=== PATIENT | male | born 1955 | race Hispanic/Latino ===

== ENCOUNTER 2017-08-29 22:04 | Inpatient (IN) | payer BC ==
[~2017-08-29] VITALS: Ht 175.3 cm; Wt 95.7 kg
[~2017-08-29 22:04] MED LIST: BIAXIN500 MG PO; CLONIDINE HCL0.1 MG PO; HYDRALAZINE HCL25 MG PO; LASIX40 MG PO; LEVAQUIN250 MG PO; METOLAZONE5 MG PO; NIFEDIPINE ER30 M1 PO; PROCARDIA XL30 MG PO; TOPROL XL50 MG PO; TOUJEO SOLOSTAR SQ
--- OUTSIDE RECORDS SUMMARY | 2017-08-29 22:06 | XMS REPORT | Clinical Summary ---
Author Author [facility] Address Unknown Phone Unavailable Care Team Providers Care Escalation Engineer Name Role Phone Devan Beal MD PCP Allergies Not on File Current Medications Not on file Active Problems Not on file Encounters Date Type Specialty Care Team Description 07/20/2017 Hospital Procedural Cardiology Deborah Rodrigez MD Thrombosis of both upper Encounter extremities; ESRD (end stage renal disease) on dialysis 07/11/2017 Orders Only General Surgery Deborah Rodrigez MD Thrombosis of both upper extremities (Primary Dx); ESRD (end stage renal disease) on dialysis after 08/28/2016 Social History Tobacco Use Types Packs/Day Years Used Date Never Assessed Sex Assigned at Date Recorded Not on file Last Filed Vital Signs Not on file Plan of Treatment Health Maintenance Due Date Last Done Comments COLONOSCOPY 11/13/2007 INFLUENZA VACCINE 01/09/2017 Results * Us vein mapping upper extremity (07/20/2017 12:05 PM) Specimen Performing Laboratory [facility] [address] [place] [address] Narrative Vascular Ultrasound Laboratory Upper Extremity Vein Mapping Report [id number]Name:Safia NUÑEZ.ID:[id number] .Date: 07/20/2017Refer.MD:DEBORAH RODRIGEZ MD Exam Time: 11:02:00 AM Study Type:UE Vein Mapping DOBAge:1955,61YSex: MALE Sonogrphr: Juan Jose Rodgers RN, RVTPat. Stat.:Outpatient TapeVol: DP, CPT - 4: G0365, 83149 Echo Event ID:[id number] Order ID:[id number] Reason for Study:ESRD.Pre op vein mapping for AVF. Race: SUMMARY: DUPLEX SCAN OBSERVATIONS Right Left IJNormal Normal SubclavianTDC Normal AxillaryNormal Normal BrachialNormal Normal BasilicNormal Not Visualized CephalicNot Visualized Not Visualized RIGHT:There is normal compressibility and no evidence of echogenic material noted within the lumen of the visualized veins. Colorflow and Doppler signals are normal. LEFT: There is normal compressibility and no evidence of echogenic material noted within the lumen of the visualized veins. Colorflow and Doppler signals are normal. PRELIMINARY FINDINGS PHYSICIAN INTERPRETATION Venous examination of the both upper extremities and neck demonstrated no evidence of venous thrombosis. Dimensions provided. MEASUREMENTS: UEVEINS Right Basilic Upper Arm Prox Basilic Upper A0.58 cm Basilic Upper A0.83 cm Right Basilic Upper Arm Mid Basilic Upper A0.58 cm Basilic Upper A0.99 cm Right Basilic Upper Arm Dist Basilic Upper A0.43 cm Basilic Upper A0.57 cm Right Basilic Forearm Prox Basilic Forearm0.38 cm Basilic Forearm0.45 cm Right Brachial Vein Antecube Brachial Vein A0.33 cm Brachial Vein A1.32 cm Left Brachial Vein Antecube Brachial Vein A0.45 cm Brachial Vein A1.63 cm Right Brachial Artery Brachial Artery0.53 cm Brachial Artery1.47 cm Left Brachial Artery Brachial Artery0.53 cm Brachial Artery 1 cm Right Radial Artery Radial Artery A0.35 cm Radial Artery D0.35 cm Left Radial Artery Radial Artery A0.29 cm Radial Artery D0.34 cm Right Ulnar Artery Ulnar Artery AP 0.2 cm Ulnar Artery De0.52 cm Left Ulnar Artery Ulnar Artery AP0.21 cm Signed 07/20/2017 01:08 PM Alvaro Daniel MD, RPVI Procedure Note Interface, Radiology Results In - 07/20/2017 1:09 PM [facility] Vascular Ultrasound Laboratory Upper Extremity Vein Mapping Report [address] [address], [place] [address] Pat.Name: BERTRAM NUÑEZ Pat.ID: [id number] .Date: 07/20/2017 Refer.MD: DEBORAH RODRIGEZ MD Exam Time: 11:02:00 AM Study Type:UE Vein Mapping Age: 8 1955,61Y Sex: MALE Sonogrphr: Juan Jose Rodgers RN, RVT Pat. Stat.:Outpatient Tape Vol: DP, CPT - 4: G0365, 72970 Echo Event ID:[id number] Order ID: [id number] Reason for Study:ESRD. Pre op vein mapping for AVF. Race: SUMMARY: DUPLEX SCAN OBSERVATIONS Right Left IJ Normal Normal Subclavian TDC Normal Axillary Normal Normal Brachial Normal Normal Basilic Normal Not Visualized Cephalic Not Visualized Not Visualized RIGHT: There is normal compressibility and no evidence of echogenic material noted within the lumen of the visualized veins. Colorflow and Doppler signals are normal. LEFT: There is normal compressibility and no evidence of echogenic material noted within the lumen of the visualized veins. Colorflow and Doppler signals are normal. PRELIMINARY FINDINGS PHYSICIAN INTERPRETATION Venous examination of the both upper extremities and neck demonstrated no evidence of venous thrombosis. Dimensions provided. MEASUREMENTS: UEVEINS Right Basilic Upper Arm Prox Basilic Upper A 0.58 cm Basilic Upper A 0.83 cm Right Basilic Upper Arm Mid Basilic Upper A 0.58 cm Basilic Upper A 0.99 cm Right Basilic Upper Arm Dist Basilic Upper A 0.43 cm Basilic Upper A 0.57 cm Right Basilic Forearm Prox Basilic Forearm 0.38 cm Basilic Forearm 0.45 cm Right Brachial Vein Antecube Brachial Vein A 0.33 cm Brachial Vein A 1.32 cm Left Brachial Vein Antecube Brachial Vein A 0.45 cm Brachial Vein A 1.63 cm Right Brachial Artery Brachial Artery 0.53 cm Brachial Artery 1.47 cm Left Brachial Artery Brachial Artery 0.53 cm Brachial Artery 1 cm Right Radial Artery Radial Artery A 0.35 cm Radial Artery D 0.35 cm Left Radial Artery Radial Artery A 0.29 cm Radial Artery D 0.34 cm Right Ulnar Artery Ulnar Artery AP 0.2 cm Ulnar Artery De 0.52 cm Left Ulnar Artery Ulnar Artery AP 0.21 cm Signed 07/20/2017 01:08 PM Alvaro Daniel MD, RPVI after 08/28/2016 Insurance Payer Benefit Subscriber ID Type Phone Address Plan / Group BCBS BCBS xxxxxxxxxxxx PPO CHOICE PPO/[place] [address]
--- OUTSIDE RECORDS SUMMARY | 2017-08-29 22:06 | XMS REPORT ---
Author Author [facility] Address Unknown Phone Unavailable Care Team Providers Care Latin Teacher Name Role Phone Unavailable Unavailable Problems This patient has no known problems. Allergies, Adverse Reactions, Alerts This patient has no known allergies or adverse reactions. Medications This patient has no known medications. Encounters Start Date/Time End Date/Time Encounter Type Admission Type Attending [facility] Care Facility Care Department Encounter ID 2017-01-29 08:57:02 2017-01-29 08:57:02 Emergency [facility] [id number] 2017-01-29 07:34:28 2017-01-29 07:34:28 Emergency [facility] [id number] 2017-01-29 07:34:04 2017-01-29 07:34:04 Emergency [facility] [id number] 2017-01-29 06:33:31 2017-01-29 06:33:31 Emergency [facility] [id number]
[2017-08-29] MEDS ORDERED: CLONIDINE HCL 0.1 MG TAB PO ONE (22:45)
[2017-08-29 22:58] LABS: BASOPHILS # (AUTO) 0.1 (0.0-0.1); BASOPHILS % 0.7 % (0.0-1.0); EOSINOPHILS # (AUTO) 0.3 (0.0-0.4); EOSINOPHILS % 3.2 % (0.0-6.0); HEMATOCRIT 34.8 % (38.2-49.6); HEMOGLOBIN 11.9 g/dL (14.0-18.0); LYMPHOCYTES # (AUTO) 1.9 (1.0-3.2); LYMPHOCYTES % 22.7 % (18.0-39.1); MEAN CORPUSCULAR HGB CONC 34.2 g/dL (31-35); MEAN CORPUSCULAR VOLUME 84.7 fL (81-99); MONOCYTES # (AUTO) 0.6 (0.2-0.8); MONOCYTES % 7.4 % (4.4-11.3); NEUTROPHILS # (AUTO) 5.6 (2.1-6.9); NEUTROPHILS % 65.8 % (38.7-80.0); PLATELET COUNT 228 x10e3/uL (140-360); RED BLOOD COUNT 4.11 x10e6/uL (4.3-5.7); RED CELL DISTRIBUTION WIDTH 13.8 % (11.7-14.4)
[2017-08-29 23:11] LABS: INR 1.1; PROTHROMBIN TIME 13.4 seconds (11.9-14.5)
[2017-08-29 23:12] LABS: PARTIAL THROMBOPLASTIN TIME 33.7 seconds (23.8-35.5)
[2017-08-29 23:19] LABS: ALBUMIN/GLOBULIN RATIO 1.1 (0.8-2.0); ANION GAP 19.3 mmol/L (8-16); CALCIUM 8.2 mg/dL (8.4-10.2); CREATININE, SERUM 6.69 mg/dL (0.72-1.25); POTASSIUM 5.3 mmol/L (3.5-5.1)
[2017-08-29 23:25] LABS: CREATINE KINASE MB 23.5 ng/mL (0-5.0)
--- NOTE | 2017-08-29 23:39 | Diagnostic Imaging Report ---
EXAMINATION: Head CT without contrast. HISTORY:Syncope and dizziness. COMPARISON:CT brain from 08/11/2016. TECHNIQUE: Multidetector axial images were obtained from the foramen magnum to the vertex without contrast. The images were reconstructed using brain and bone algorithms. Thin section brain images were reformatted into coronal and sagittal planes. Intravenous contrast: None IMAGE QUALITY: Acceptable. FINDINGS: Skull/scalp: No lytic or blastic. lesions. No surgical changes. Parenchyma: No abnormal density. No acute hemorrhage, mass or acute major vascular territorial infarct. Arteries: Atherosclerotic calcification in bilateral carotid siphon. Dural sinuses: No abnormal density suggestive of thrombosis. Ventricles: No hydrocephalus or displacement. Extra-axial spaces: Unchanged 3 mm dural based dystrophic calcification in the posterior aspect of left temporal region without surrounding edema or mass effect may represent a small calcified meningioma. Brain volume: Mild generalized cerebral volume loss. Craniocervical junction: No mass, Chiari malformation, or basilar invagination. Sella: No mass. Paranasal/mastoid sinuses: Imaged portions unremarkable. IMPRESSION: No acute intracranial abnormality. Mild generalized cerebral volume loss. Signed by: Dr. Keesha Lane M.D. on 08/29/2017 11:35 PM
--- NOTE | 2017-08-29 23:45 | Diagnostic Imaging Report ---
EXAM: CHEST 2 VIEWS, PA and lateral INDICATION: Syncope, dizziness COMPARISON: PA and lateral view of the chest August 14, 2016 FINDINGS: LINES/TUBES: Interval placement of right internal jugular vein tunnel hemodialysis catheter with tip at the expected location of the atriocaval junction. LUNGS: No consolidations or edema. PLEURA: No effusions or pneumothorax. HEART AND MEDIASTINUM: Normal size and contour. BONES AND SOFT TISSUES: No acute findings. IMPRESSION: No acute thoracic abnormality. Signed by: Dr. Alayna Saucedo M.D. on 08/29/2017 11:41 PM
[2017-08-30] VITALS (9 sets, daily range): BP systolic 130–198; BP diastolic 65–97
[2017-08-30 00:17] LABS: BILIRUBIN,URINE NEGATIVE (NEGATIVE); CLARITY,URINE CLEAR (CLEAR); COLOR,URINE YELLOW (YELLOW); KETONES,URINE NEGATIVE (NEGATIVE); LEUKOCYTE ESTERASE ,URINE NEGATIVE (NEGATIVE); NITRITE,URINE NEGATIVE (NEGATIVE); PROTEIN,URINE DIPSTICK 3+ (NEGATIVE); URINE UROBILINOGEN 0.2 mg/dL (0.2 - 1)
[2017-08-30 00:34] LABS: EPITHELIAL CELLS,URINE RARE /LPF; WBC,URINE (MAN) 0-5 /HPF (0-5)
[2017-08-30 00:35] LABS: BACTERIA,URINE FEW /HPF
[2017-08-30] MEDS ORDERED: NITROGLYCERIN 2% OINT 1 GM PKT TOP ONE ×2 (01:00→02:00)
[2017-08-30] MEDS ORDERED: FUROSEMIDE INJ 10 MG/ML 4 ML VIAL IV ONE (01:00)
[2017-08-30] MEDS ORDERED: ASPIRIN 325 MG TAB EC PO STA (02:03)
[2017-08-30] MEDS: FAMOTIDINE 20 MG/2 ML VIAL IV SCH ×2 (02:15→10:09)
[2017-08-30] MEDS ORDERED: HYDRALAZINE HCL 20 MG/ML VIAL IV PRN (02:15)
[2017-08-30] MEDS ORDERED: ONDANSETRON HCL INJ 2 MG/ML VIAL IV PRN (02:15)
[2017-08-30] MEDS ORDERED: MORPHINE SULFATE 2 MG/ML SYR IV PRN (02:15)
--- OUTSIDE RECORDS SUMMARY | 2017-08-30 02:16 | XMS REPORT | Clinical Summary ---
Author Author [facility] Address Unknown Phone Unavailable Care Team Providers Care Public Service Administrator Name Role Phone Devan Beal MD PCP [...] (end stage renal disease) on dialysis after 08/29/2016 Social History Tobacco Use Types Packs/Day Years Used Date Never Assessed Sex Assigned at Date Recorded Not on file Last Filed Vital Signs Not on file Plan of Treatment Health Maintenance Due Date Last Done Comments COLONOSCOPY 11/13/2007 INFLUENZA VACCINE 01/09/2017 Results * Us vein mapping upper extremity (07/20/2017 12:05 PM) Specimen Performing Laboratory [facility] [address] [place] [address] Narrative Vascular Ultrasound Laboratory Upper Extremity Vein Mapping Report [address]Name:Safia NUÑEZ.ID:[id number] .Date: 07/20/2017Refer.MD:DEBORAH RODRIGEZ MD Exam Time: 11:02:00 AM Study Type:UE Vein Mapping DOBAge:1955,61YSex: MALE Sonogrphr: Juan Jose Rodgers RN, RVTPat. Stat.:Outpatient TapeVol: DP, CPT - 4: G0365, 04682 Echo Event ID:[id number] Order ID:[id number] Reason for Study:ESRD.Pre op vein mapping for [...] Radiology Results In - 07/20/2017 1:09 PM [facility] Vascular Ultrasound Laboratory Upper Extremity Vein Mapping Report [address] [address], [place] [address] Pat.Name: BERTRAM NUÑEZ Pat.ID: [id number] .Date: 07/20/2017 Refer.MD: DEBORAH RODRIGEZ MD Exam Time: 11:02:00 AM Study Type:UE Vein Mapping Age: 8 1955,61Y Sex: MALE Sonogrphr: Juan Jose Rodgers RN, RVT Pat. Stat.:Outpatient Tape Vol: DP, CPT - 4: G0365, 14801 Echo Event ID:[id number] Order ID: [id number] Reason for Study:ESRD. Pre op vein mapping [...] 01:08 PM Alvaro Daniel MD, RPVI after 08/29/2016 Insurance Payer Benefit Subscriber ID Type Phone Address Plan / Group BCBS BCBS xxxxxxxxxxxx PPO CHOICE PPO/[place] [address]
[2017-08-30 04:41] LABS: CREATINE KINASE MB 16.6 ng/mL (0-5.0)
[2017-08-30] MEDS: INSULIN REGULAR, HUMAN 100 UNIT/1 ML 3ML VIAL SQ SCH ×4 (07:30→21:40)
[2017-08-30] MEDS: HYDRALAZINE HCL 100 MG TABLET PO SCH ×4 (09:00→21:54)
[2017-08-30] MEDS ORDERED: HYDRALAZINE HCL 25 MG TAB PO SCH (09:00)
[2017-08-30] MEDS: METOPROLOL SUCCINATE 50 MG TAB XL PO SCH ×3 (09:00→16:52)
[2017-08-30] MEDS: FUROSEMIDE 40 MG TAB PO SCH ×2 (10:09→16:51)
[2017-08-30] MEDS: ASPIRIN 81 MG ENTERIC COATED PO SCH (10:09)
[2017-08-30] MEDS: NIFEDIPINE CR 30 MG TAB PO SCH (10:09)
[2017-08-30] MEDS: METOLAZONE 5 MG TAB PO SCH (10:10)
--- NOTE | 2017-08-30 11:19 | History and Physical ---
A 61-year-old gentleman comes in with syncopal episode. HISTORY OF PRESENT ILLNESS: This is Mr. Bertram Nuñez who is a patient with end-stage renal disease, who was in his usual state of health until a day prior to admission. The patient was sitting down, and as he woke up the patient bent over forward, and his head hit the floor. Momentary lapse of consciousness. The patient's brought him to the emergency room. Preceding the symptoms, the patient had a lot of lightheadedness associated with dialysis. This last episode fell and collapsed. Possible loss of consciousness. No seizure activity. No incontinence. No breathing cessation noted. The patient has been recently seen by the renal clinic for dialysis. The last dialysis was 2 days ago. PAST MEDICAL HISTORY: History of hypertension, history of diabetes mellitus, history of end-stage renal disease, history of heart disease. The patient recently had a stress test with Dr. Espinosa, and was supposed to have a cath done in the near future. The patient's stress test did show something positive according to the patient. MEDICATIONS 1. Clonidine 0.1 mg. 2. Furosemide 40 mg. 3. Hydralazine 25 mg. 4. Metolazone 5 mg. 5. Metoprolol 50 mg. 6. Nifedipine 30 mg. 7. Toujeo 10 units at nighttime. ALLERGIES: SEE NURSE'S NOTES. HOWEVER, THE PATIENT HAS NO ALLERGIES NOTED. REVIEW OF SYSTEMS: Negative for chest pain. No shortness of breath. No nausea, vomiting or diarrhea. No constipation or rectal bleeding. No hematochezia. No hematemesis. No diplopia. No blurry vision. Positive for syncopal episode and positive for lightheadedness as noted above. FAMILY HISTORY: Hypertension, coronary artery disease and diabetes in family. PHYSICAL EXAMINATION GENERAL: The patient is alert and oriented times 3. Comfortable lying in bed. VITAL SIGNS: Pulse is 70, blood pressure 175/98, pulse oximetry is 100% on room air. HEENT: Normocephalic and atraumatic. Pupils reactive to light and accommodation. Poor dental hygiene. CV: S1 and S2 normal. RESPIRATIONS: Clear to auscultation bilaterally. ABDOMEN: Nontender and nondistended. EXTREMITIES: No clubbing. No cyanosis. No edema. NEUROLOGICAL: Alert and oriented times 3. Speech is normal. Cranial nerves are normal. No motor or sensory deficits noted either. Reflexes are normal. LABORATORY VALUES: Initial sodium was 136, potassium 5.3, BUN 81, creatinine 6.69, glucose 148, calcium 8.2. CK and CK-MB trended high of 595 and 2 and 3.5. Troponins were negative at 0.116. Chest x-ray showed no acute thoracic abnormalities. CT of the brain was appropriate for age. ASSESSMENT 1. Syncopal episode. 2. End-stage renal deficiency, on dialysis. 3. Uncontrolled hypertension with hypertensive crisis. PLAN: Continue his home medications. The patient will have an MRI and MRA of the brain. Cardiology consult has been done. Orthostatic blood pressures have been ordered. The patient already had a stress test and echocardiogram by Dr. Espinosa. Consult has been done. Will restart all his medications. Continue monitoring his blood pressure. Further recommendations were clinical course. The patient will have dialysis today for his hyperkalemia and end-stage renal disease. Job#: [id number] ROCKY
[2017-08-30 12:26] LABS: CREATINE KINASE MB 13.5 ng/mL (0-5.0)
--- NOTE | 2017-08-30 13:10 | Consultation ---
DATE OF CONSULTATION: August 30, 2017 NEPHROLOGY CONSULTATION REASON FOR CONSULTATION: End-stage renal disease. This is a 61-year-old, pleasant male who is known to have multiple medical problems including hypertension, diabetes, dyslipidemia, coronary artery disease, CHF and end-stage renal disease. Recently started in the last few months on dialysis and has been doing well with his fluid status. He lost a lot of fluid and his lower extremity edema. Recently, he has been complaining of dizziness and feeling weak and tired after dialysis, and even on his nondialysis days, he has been getting lightheaded. Yesterday, he was walking around the house with his , and then he suddenly got dizzy with blurry vision. He bent his head forward, and he felt loss of consciousness for a few seconds and then woke up, and his brought him to the ER for further evaluation as this has been recurrent. Last week, this happened again in the jew. The patient is being evaluated for dizziness. He recently had a stress test with Dr. Espinosa before, and he cleared him for AV fistula. It was suggested that he needs a left heart cath. I was consulted to manage dialysis as an outpatient. REVIEW OF SYSTEMS: Negative otherwise. PAST MEDICAL HISTORY: As mentioned above. PAST SURGICAL HISTORY: Status post tunneled catheter for hemodialysis. SOCIAL HISTORY: Denies smoking, alcohol or IV drug abuse. Living with his family. FAMILY HISTORY: Positive for hypertension and diabetes. MEDICATIONS: As listed. ALLERGIES: NEGATIVE. PHYSICAL EXAMINATION VITALS: Blood pressure 136/65, heart rate 115, temperature 96.4. GENERAL APPEARANCE: No acute distress. HEAD, EARS, EYES, NECK: No lymphadenopathy. HEART: Regular rate and rhythm. LUNGS: Bilateral air entry. ABDOMEN: Soft, nontender. EXTREMITIES: +1 edema, which is much better than before. LABS: Potassium is 5.3. Hemoglobin is 4.1. His troponin is 0.116, CK-MB 23.5, CK 595, albumin 4. ASSESSMENT AND PLAN 1. End-stage renal disease on hemodialysis every Sunday, and Sunday at [facility]. We are going to dialyze the patient today per schedule. 2. Electrolytes. Low-potassium diet and bath. 3. Anemia of chronic disease. Monitor H and H. Add Epogen if hemoglobin is less than 10. 4. Diabetes on insulin. 5. Hypertension. The prognosis has been better controlled. His home blood pressure medication has been resumed. 6. Recurrent dizziness and lightheadedness for further evaluation. Neck MRA has been ordered. He had a recent stress test. Will consult cardiology for possible left heart cath during his stay now, and we will check a carotid ultrasound. Thank you for the consult. MIRNA العلي MD Job#: [id number]
[2017-08-30] MEDS: FAMOTIDINE 20 MG TAB PO SCH (16:30)
[2017-08-30] MEDS ORDERED: HEPARIN SOD (PORCINE) 1000 UNIT/ML SDV IV PRN (17:15)
--- NOTE | 2017-08-30 19:25 | Diagnostic Imaging Report ---
Exams: Cervical and intracranial MRAs without IV contrast History: Syncope, ESRD, hypertension Comparison studies: None Technique: Cervical MRA: 2-D [id number] cervical with 3-D MIP reformats. Intracranial MRA: Axial 3-D [id number] intracranial with sagittal, coronal and 3-D MIP reformats. Contrast: None. If present, stenosis is calculated utilizing the NASCET method which calculates the degree of stenosis with reference to the normal lumen of the carotid artery distal to the stenosis. Findings: Cervical MRA: Exam is somewhat limited by artifacts related to patient motion. The aortic arch and origin of the left common carotid artery lies outside imaged [id number] and cannot be assessed. Common carotid arteries: Patent bilaterally without hemodynamically significant stenosis. Carotid bulbs: Mild luminal irregularity bilaterally without hemodynamically significant stenosis (0% by NASCET criteria). Internal carotid arteries: Patent, no flow abnormalities. Flow abnormalities. Vertebral arteries: Origins are suboptimally evaluated by artifacts. No flow abnormalities on the left. Poor flow signal within the right vertebral artery. Intracranial MRA: Internal carotid arteries: Patent bilaterally. Calcified atherosclerosis in the cavernous and paraophthalmic segments as seen on the previous head CT do not result in significant stenosis. Anterior cerebral arteries: No flow abnormalities in the left A1 and proximal A2 segments. The right A1 segment is not visualized and may be atretic. Middle cerebral arteries: Patent bilateral M1 and proximal M2 segments. Mild luminal irregularity within the bilateral MCAs may be due to atherosclerosis. Included intradural segments of the vertebral arteries: No flow abnormalities on the left. Diminutive right intradural V4 segment. Basilar artery: No flow abnormalities. Posterior cerebral arteries: Patent bilaterally with luminal irregularity with moderate to severe stenosis in the distal left P1 and right P2 segments. Anatomical variants Anterior cerebral arteries: Right A1 JOHN segment not visualized, possibly atretic Acom: Visualized. Pcom: Not visualized bilaterally. Vertebral arteries: Left is dominant. Right is likely hypoplastic. IMPRESSION: Cervical MRA: 1. Poor flow signal within the right vertebral artery may be due to flow-limiting stenosis and/or congenital hypoplasia. 2. Patent, no hemodynamically significant stenosis in the left vertebral artery or carotid arteries. 3. No (0%) stenosis at the cervical carotid bulbs. Intracranial MRA: 1. Small caliber right vertebral artery may be due to flow-limiting stenosis and/or congenital hypoplasia. Moderate calcified atherosclerosis within the proximal right V4 segment is seen on the previous head CT. 2. Atherosclerosis in the carotid siphons without significant stenosis. 3. Luminal irregularity in the middle cerebral arteries and posterior cerebral arteries may be due to atherosclerosis with moderate to severe stenosis in the proximal posterior cerebral arteries bilaterally. Signed by: Dr. Dimitry Dailey M.D. on 08/30/2017 7:22 PM
--- NOTE | 2017-08-30 19:25 | Diagnostic Imaging Report ---
Exams: Cervical and intracranial MRAs without IV contrast History: Syncope, ESRD, hypertension Comparison studies: None Technique: Cervical MRA: 2-D [id number] cervical with 3-D MIP reformats. Intracranial MRA: Axial 3-D [id number] intracranial with sagittal, coronal and 3-D MIP reformats. Contrast: None. If present, stenosis is calculated utilizing the NASCET method which calculates the degree of stenosis with reference to the normal lumen of the carotid artery distal to the stenosis. Findings: Cervical MRA: Exam is somewhat limited by artifacts related to patient motion. The aortic arch and origin of the left common carotid artery lies outside imaged [id number] and cannot be assessed. Common carotid arteries: Patent bilaterally without hemodynamically significant stenosis. Carotid bulbs: Mild luminal irregularity bilaterally without hemodynamically significant stenosis (0% by NASCET criteria). Internal carotid arteries: Patent, no flow abnormalities. Flow abnormalities. Vertebral arteries: Origins are suboptimally evaluated by artifacts. No flow abnormalities on the left. Poor flow signal within the right vertebral artery. Intracranial MRA: Internal carotid arteries: Patent bilaterally. Calcified atherosclerosis in the cavernous and paraophthalmic segments as seen on the previous head CT do not result in significant stenosis. Anterior cerebral arteries: No flow abnormalities in the left A1 and proximal A2 segments. The right A1 segment is not visualized and may be atretic. Middle cerebral arteries: Patent bilateral M1 and proximal M2 segments. Mild luminal irregularity within the bilateral MCAs may be due to atherosclerosis. Included intradural segments of the vertebral arteries: No flow abnormalities on the left. Diminutive right intradural V4 segment. Basilar artery: No flow abnormalities. Posterior cerebral arteries: Patent bilaterally with luminal irregularity with moderate to severe stenosis in the distal left P1 and right P2 segments. Anatomical variants Anterior cerebral arteries: Right A1 JOHN segment not visualized, possibly atretic Acom: Visualized. Pcom: Not visualized bilaterally. Vertebral arteries: Left is dominant. Right is likely hypoplastic. IMPRESSION: Cervical MRA: 1. Poor flow signal within the right vertebral artery may be due to flow-limiting stenosis and/or congenital hypoplasia. 2. Patent, no hemodynamically significant stenosis in the left vertebral artery or carotid arteries. 3. No (0%) stenosis at the cervical carotid bulbs. Intracranial MRA: 1. Small caliber right vertebral artery may be due to flow-limiting stenosis and/or congenital hypoplasia. Moderate calcified atherosclerosis within the proximal right V4 segment is seen on the previous head CT. 2. Atherosclerosis in the carotid siphons without significant stenosis. 3. Luminal irregularity in the middle cerebral arteries and posterior cerebral arteries may be due to atherosclerosis with moderate to severe stenosis in the proximal posterior cerebral arteries bilaterally. Signed by: Dr. Dimitry Dailey M.D. on 08/30/2017 7:22 PM
[2017-08-30] MEDS: CLONIDINE HCL 0.1 MG TAB PO SCH (21:53)
[2017-08-30 22:59] LABS: CREATINE KINASE MB 11.7 ng/mL (0-5.0)
[2017-08-31] VITALS (13 sets, daily range): BP systolic 97–192; BP diastolic 56–93
[2017-08-31] MEDS: DEXTROSE 50% SYRINGE 50 ML IV PRN ×2 (02:03→03:00)
[2017-08-31] MEDS: INSULIN REGULAR, HUMAN 100 UNIT/1 ML 3ML VIAL SQ SCH ×4 (07:30→19:59)
[2017-08-31 07:47] LABS: BASOPHILS # (AUTO) 0.1 (0.0-0.1); BASOPHILS % 1.1 % (0.0-1.0); EOSINOPHILS % 0.6 % (0.0-6.0); HEMATOCRIT 37.2 % (38.2-49.6); HEMOGLOBIN 12.3 g/dL (14.0-18.0); LYMPHOCYTES # (AUTO) 1.1 (1.0-3.2); LYMPHOCYTES % 17.7 % (18.0-39.1); MEAN CORPUSCULAR HEMOGLOBIN 28.3 pg (28-32); MEAN CORPUSCULAR HGB CONC 33.1 g/dL (31-35); MEAN CORPUSCULAR VOLUME 85.5 fL (81-99); MONOCYTES # (AUTO) 0.4 (0.2-0.8); MONOCYTES % 6.1 % (4.4-11.3); NEUTROPHILS # (AUTO) 4.7 (2.1-6.9); NEUTROPHILS % 74.2 % (38.7-80.0); PLATELET COUNT 203 x10e3/uL (140-360); RED BLOOD COUNT 4.35 x10e6/uL (4.3-5.7); RED CELL DISTRIBUTION WIDTH 13.9 % (11.7-14.4)
[2017-08-31 08:06] LABS: ALBUMIN 3.6 g/dL (3.5-5.0); ANION GAP 15.2 mmol/L (8-16); CALCIUM 8.7 mg/dL (8.4-10.2); CHOL/HDL RATIO 4.3 (3.9-4.7); CREATININE, SERUM 4.44 mg/dL (0.72-1.25); POTASSIUM 4.2 mmol/L (3.5-5.1)
[2017-08-31] MEDS: FUROSEMIDE 40 MG TAB PO SCH ×2 (09:00→18:19)
[2017-08-31] MEDS: ASPIRIN 81 MG ENTERIC COATED PO SCH (09:00)
[2017-08-31] MEDS: METOLAZONE 5 MG TAB PO SCH (09:00)
--- NOTE | 2017-08-31 10:08 | Consultation ---
DATE OF CONSULTATION: August 30, 2017 CARDIOLOGY CONSULTATION REQUESTING PHYSICIAN: Dr. Devan Beal REASON FOR CONSULTATION: Syncope. HISTORY OF PRESENT ILLNESS: This is a 61-year-old gentleman with history of hypertension, hyperlipidemia, diabetes mellitus, and end-stage renal disease, who presented with complaints of syncope. The patient reports he was standing outside talking yesterday, when he began to feel dizzy. He attempted to sit down, but then lost consciousness. He denied any tongue biting or bowel or bladder incontinence. Subsequently, he attended [employer]. After conf[employer]ian[employer], he stood up to walk outside and subsequently, had another episode. REVIEW OF SYSTEMS: Negative except as per HPI. PAST MEDICAL HISTORY 1. End-stage renal disease, on hemodialysis. 2. Diabetes mellitus. 3. Hypertension. 4. Hyperlipidemia. PAST SURGICAL HISTORY: None. ALLERGIES: PLEASE SEE EMR. MEDICATIONS: Please see medication list. SOCIAL HISTORY: Denies tobacco, alcohol or illicit drugs. FAMILY HISTORY: Noncontributory. PHYSICAL EXAM VITAL SIGNS: Temperature 96.5 degrees, pulse 73, respiratory rate 20, blood pressure 162/85, oxygen saturation 100%. GENERAL: Awake, alert, in no acute distress. HEENT: Normocephalic, atraumatic. Pupils equal. No scleral icterus. NECK: Supple. No thyromegaly or cervical lymphadenopathy, no carotid bruits. LUNGS: Clear to auscultation bilaterally. No wheezes or crackles. CARDIOVASCULAR: Normal rate, regular rhythm. No murmur. Normal S1, S2. ABDOMEN: Soft, nontender. EXTREMITIES: No edema. NEURO: Nonfocal exam. LABS: Troponin 0.074. Sodium 136, potassium 5.3, chloride 99, CO2 23, BUN 81, creatinine 6.69. EKG: Normal sinus rhythm, possible left atrial enlargement, possible inferior infarct age undetermined, anterior infarct age undetermined, T-wave abnormality, consider lateral ischemia. IMPRESSIONS 1. Chronic systolic heart failure, diastolic and systolic. 2. End-stage renal disease, on hemodialysis. 3. Hypertension. 4. Hyperlipidemia. 5. Diabetes mellitus. 6. Abnormal nuclear stress test at the office. 7. Syncope. RECOMMENDATIONS: Continue current cardiac medications. We will make the patient n.p.o. after midnight. Plan for cardiac catheterization tomorrow afternoon. Continue monitoring patient on telemetry for arrhythmias that may have explained patient's symptoms. Thank you for this consult. We will continue to follow. Job#: [id number] [id number]
[2017-08-31] MEDS: HYDRALAZINE HCL 100 MG TABLET PO SCH ×3 (12:39→21:00)
[2017-08-31] MEDS: METOPROLOL SUCCINATE 50 MG TAB XL PO SCH ×2 (12:39→18:20)
[2017-08-31] MEDS: NIFEDIPINE CR 30 MG TAB PO SCH (12:39)
[2017-08-31] MEDS: FAMOTIDINE 20 MG TAB PO SCH ×2 (12:40→18:19)
--- NOTE | 2017-08-31 14:06 | Progress Note ---
DATE: August 31, 2017 CARDIOLOGY PROGRESS NOTE SUBJECTIVE: Patient denies chest pain or shortness of breath. He is n.p.o. for cardiac catheterization today. OBJECTIVE VITAL SIGNS: Temperature 97.4 degrees, pulse 80, respiratory rate 16, blood pressure 186/93, oxygen saturation 99% on room air. GENERAL: Awake, alert, in no acute distress. LUNGS: Clear to auscultation bilaterally. No wheezes or crackles. CARDIOVASCULAR: Normal rate, regular rhythm. No murmur. Normal S1 and S2. ABDOMEN: Soft, nontender, EXTREMITIES: No edema. CARDIAC MEDICATIONS 1. Hydralazine 100 mg p.o. t.i.d. 2. Nifedipine 30 mg p.o. daily. 3. Metoprolol succinate 50 mg p.o. b.i.d. 4. Clonidine 0.1 mg p.o. nightly. 5. Metolazone 5 mg p.o. daily. 6. Furosemide 40 mg p.o. b.i.d. 7. Aspirin 81 mg p.o. daily. LABS: WBC 6.38, hemoglobin 12.3, hematocrit 37.2, platelets 203. Sodium 139, potassium 4.2, chloride 103, CO2 25, BUN 42, creatinine 4.44. Cholesterol 203, triglyceride 71, LDL 142, HDL 47. TELEMETRY: Normal sinus rhythm. IMPRESSION 1. Chronic systolic heart failure, diastolic and systolic. 2. Abnormal nuclear stress test at the office. 3. End-stage renal disease on hemodialysis. 4. Hypertension. 5. Hyperlipidemia. 6. Diabetes mellitus. 7. Syncope. RECOMMENDATIONS: Patient is n.p.o. for cardiac catheterization today. Continue current cardiac medications. No arrhythmias have been identified on telemetry. We will continue to monitor. Check orthostatic vitals. Thank you for this consult. We will continue to follow. Job#: [id number] [id number]
[2017-08-31] MEDS ORDERED: VERAPAMIL HCL 2.5 MG/ML 2 ML VIAL ONE (14:07)
[2017-08-31] MEDS ORDERED: HEPARIN SOD/SOD CHLORIDE 2,000 ML ONE (14:08)
[2017-08-31] MEDS ORDERED: FENTANYL CITRATE/PF 100MCG/2 ML INJ ONE (14:08)
[2017-08-31] MEDS ORDERED: MIDAZOLAM HCL 2 MG/2 ML VIAL ONE (14:08)
[2017-08-31] MEDS ORDERED: IOPAMIDOL 370 MG/ML 200 ML INFUS..BTL INJ ONE (14:08)
[2017-08-31] MEDS ORDERED: LIDOCAINE HCL 2% LOCAL 20 ML VIAL ONE (14:08)
[2017-08-31] MEDS ORDERED: SODIUM CHLORIDE 0.9% 1000ML 1,000 ML ONE (14:08)
[2017-08-31] MEDS ORDERED: SIMVASTATIN 20 MG TAB PO SCH (21:00)
[2017-08-31] MEDS: CLONIDINE HCL 0.1 MG TAB PO SCH (21:08)
[2017-09-01] VITALS: BP 130/63
[2017-09-01 04:00] VITALS: BP 132/64
[2017-09-01 07:18] VITALS: BP 147/85
[2017-09-01 07:20] LABS: BASOPHILS # (AUTO) 0.1 (0.0-0.1); BASOPHILS % 0.8 % (0.0-1.0); EOSINOPHILS # (AUTO) 0.1 (0.0-0.4); EOSINOPHILS % 1.8 % (0.0-6.0); HEMATOCRIT 35.5 % (38.2-49.6); HEMOGLOBIN 11.6 g/dL (14.0-18.0); LYMPHOCYTES # (AUTO) 1.8 (1.0-3.2); LYMPHOCYTES % 24.6 % (18.0-39.1); MEAN CORPUSCULAR HEMOGLOBIN 28.3 pg (28-32); MEAN CORPUSCULAR HGB CONC 32.7 g/dL (31-35); MEAN CORPUSCULAR VOLUME 86.6 fL (81-99); MONOCYTES # (AUTO) 0.6 (0.2-0.8); MONOCYTES % 8.1 % (4.4-11.3); NEUTROPHILS # (AUTO) 4.8 (2.1-6.9); NEUTROPHILS % 64.3 % (38.7-80.0); PLATELET COUNT 236 x10e3/uL (140-360); RED CELL DISTRIBUTION WIDTH 14.2 % (11.7-14.4)
[2017-09-01] MEDS: INSULIN REGULAR, HUMAN 100 UNIT/1 ML 3ML VIAL SQ SCH ×3 (07:30→15:48)
[2017-09-01 07:39] LABS: ANION GAP 16.5 mmol/L (8-16); CALCIUM 8.2 mg/dL (8.4-10.2); CREATININE, SERUM 5.68 mg/dL (0.72-1.25); POTASSIUM 4.5 mmol/L (3.5-5.1)
[2017-09-01] MEDS: FAMOTIDINE 20 MG TAB PO SCH (08:29)
[2017-09-01 08:33] VITALS: BP 147/85
[2017-09-01] MEDS: ASPIRIN 81 MG ENTERIC COATED PO SCH (08:46)
[2017-09-01] MEDS: HYDRALAZINE HCL 100 MG TABLET PO SCH ×2 (09:00→14:37)
[2017-09-01] MEDS: METOPROLOL SUCCINATE 50 MG TAB XL PO SCH (09:00)
[2017-09-01] MEDS: FUROSEMIDE 40 MG TAB PO SCH (09:24)
--- NOTE | 2017-09-01 11:30 | Progress Note ---
DATE: CARDIOLOGY PROGRESS NOTE SUBJECTIVE: Patient is without any complaints. He denies any shortness of breath, chest pain, dizziness, syncope, or palpitations. CARDIOVASCULAR MEDICATIONS 1. Furosemide 40 mg p.o. b.i.d. 2. Aspirin 81 mg p.o. daily. 3. Clonidine 0.1 mg p.o. h.s. 4. Nifedipine 30 mg p.o. daily. 5. Hydralazine 100 mg p.o. t.i.d. 6. Metoprolol 50 mg p.o. b.i.d. 7. Metolazone 5 mg p.o. daily. 8. Hydralazine 10 mg q.4 hours p.r.n. IV. OBJECTIVE VITAL SIGNS: Temperature 97.0, pulse 68, respiratory rate 16, blood pressure 147/85, oxygen saturation 98% on room air. GENERAL: Alert and oriented x3. Resting comfortably in the chair. Does not appear to be in any acute distress. LUNGS: Clear to auscultation throughout. No wheezing. No rhonchi. No crackles. CARDIOVASCULAR: Normal rate and rhythm. No murmurs. Normal S1 and S2. ABDOMEN: Soft, round, and nontender. EXTREMITIES: Lower extremities, no edema. LABS: WBC 7.40, hemoglobin 11.6, hematocrit 35.5, and platelets 236. Sodium 133, potassium 4.5, BUN 51, creatinine 5.68, glucose 136, calcium 8.2. TELEMETRY: Sinus rhythm with ST depression. IMPRESSION 1. Chronic systolic heart failure, diastolic and systolic. 2. Abnormal nuclear stress test at the office, now status post coronary angiogram yesterday with Dr. Espinosa. 3. End-stage renal disease, on hemodialysis. 4. Hypertension. 5. Hyperlipidemia. 6. Diabetes mellitus. 7. Syncope. RECOMMENDATION: Patient awaiting coronary artery bypass graft as outpatient. Continue the above-listed cardiac medications. At this time, patient is asymptomatic. We will monitor closely as outpatient. Okay to discharge this patient on the above-listed cardiac medications with follow up with cardiology in the next 1 to 2 days. Workup with cardiothoracic surgeon pending. Dictated By: Julia Arreola NP Job#: [id number]
[2017-09-01 12:12] VITALS: BP 151/82
[2017-09-01] MEDS ORDERED: SODIUM CHLORIDE 0.9% 1000ML 2,000 ML ONE (12:41)
[2017-09-01 16:31] VITALS: BP 168/85
== END 2017-09-01 17:36 | disposition home or self-care (01) | DRG 286 ==
LOC: ER 22:04 → ERHOLD 08-30 02:14 → MED/SURG 08-30 02:53
PROVIDERS: ADMIT Family Medicine; ATTEND Family Medicine
PROC: 5A1D70Z Performance of Urinary Filtration, Intermittent, Less than 6 Hours Per Day (ICD-10-PCS; 2017-08-30)
PROC: 4A023N7 Measurement of Cardiac Sampling and Pressure, Left Heart, Percutaneous Approach (ICD-10-PCS; principal; 2017-08-31)
PROC: B2111ZZ Fluoroscopy of Multiple Coronary Arteries using Low Osmolar Contrast (ICD-10-PCS; 2017-08-31)
PROC: B3181ZZ Fluoroscopy of Bilateral Internal Carotid Arteries using Low Osmolar Contrast (ICD-10-PCS; 2017-08-31)
DX: I25.10 Atherosclerotic heart disease of native coronary artery without angina pectoris (principal); N18.6 End stage renal disease; I13.2 Hypertensive heart and chronic kidney disease with heart failure and with stage 5 chronic kidney disease, or end stage renal disease; I50.42 Chronic combined systolic (congestive) and diastolic (congestive) heart failure; I16.9 Hypertensive crisis, unspecified; E11.22 Type 2 diabetes mellitus with diabetic chronic kidney disease; R55 Syncope and collapse; Z99.2 Dependence on renal dialysis; E78.5 Hyperlipidemia, unspecified; D63.1 Anemia in chronic kidney disease; Z79.82 Long term (current) use of aspirin; Z79.4 Long term (current) use of insulin; E87.5 Hyperkalemia
CPT/HCPCS: 36140; 36415; 70450; 70544; 70547; 71046; 77002; 80048; 80053; 80061; 81001; 82550; 82553; 82948; 83735; 84484; 85025; 85610; 85730; 86021; 86160; 86704; 86705; 86707; 87086; 87340; 90962; 93005; 93458; 93880; 97139; 99284; C1769; J0360; J1644; J1940; J2001; J2250; J7030; J7799; Q9967